=== PATIENT | male | born 1960 | race Caucasian/White ===

== ENCOUNTER 2019-08-27 18:12 | Inpatient (IN) | payer MEDICARE ==
[~2019-08-27] VITALS: Ht 182.9 cm; Wt 177.3 kg
[2019-08-27 19:17] LABS: BASOPHILS 0.3 % (0-2); EOSINOPHILS 1.6 % (0-7); HEMATOCRIT 43.3 % (42.0-54.0); IMMATURE GRANULOCYTES 0.3 % (0-5); LYMPHOCYTES 24.1 % (15-50); MCH 31.3 pg (26.0-34.0); MCHC 32.3 g/dL (31.0-37.0); MCV 96.7 fL (80.0-100.0); MEAN PLATELET VOLUME 8.8 fL (7.4-10.4); MONOCYTES 5.9 % (2-11); NEUTROPHILS 67.8 % (40-80); PLATELET COUNT 335 10x3/uL (130-400); RBC 4.48 10x6/uL (4.20-6.10); RDW 16.6 % (11.5-14.5); WBC 11.4 10x3/uL (4.8-10.8)
[2019-08-27 19:23] LABS: APTT 25.4 SECONDS (22.8-39.4); INR 1.04 (0.85-1.17); PROTIME 13.6 SECONDS (11.6-15.0)
[2019-08-27 19:26] LABS: ANION GAP 15.1 mmol/L (8-16); CALCIUM 8.5 mg/dL (8.5-10.1); CARBON DIOXIDE 25.5 mmol/L (21.0-32.0); CREATININE - SERUM 1.3 mg/dL (0.6-1.3); POTASSIUM - SERUM 3.6 mmol/L (3.5-5.1)
[2019-08-27 19:35] LABS: ALBUMIN 2.9 g/dL (3.4-5.0); BILIRUBIN - TOTAL 0.29 mg/dL (0.2-1.3); PROTEIN - SERUM 6.7 g/dL (6.4-8.2)
[2019-08-27] MEDS ORDERED: PROZAC20 MG PO (21:12)
--- NOTE | 2019-08-27 21:21 | NUR ---
[facility] ALERT,ORIENTED. SLING INTACT TO RIGHT ARM. IV TO LFA INTACT WITHOUT REDNESS OR EDEMA NOTED. TRANSFERED TO BED X 4 PERSON. ORIENTED TO ROOM. GAME ADVISOR MORPHINE SET UP WITH PATIENTINSTRUCTED ON USE.
[2019-08-28 01:25] VITALS: BP 148/83
[2019-08-28 04:29] VITALS: BP 133/66; Ht 182.9 cm; Wt 177.3 kg
[2019-08-28 04:59] VITALS: BP 106/55
[2019-08-28 06:22] LABS: BASOPHILS 0.2 % (0-2); HEMATOCRIT 42.1 % (42.0-54.0); HEMOGLOBIN 13.1 g/dL (13.5-17.5); IMMATURE GRANULOCYTES 0.3 % (0-5); LYMPHOCYTES 17.5 % (15-50); MCH 30.1 pg (26.0-34.0); MCHC 31.1 g/dL (31.0-37.0); MCV 96.8 fL (80.0-100.0); MONOCYTES 11.1 % (2-11); NEUTROPHILS 69.9 % (40-80); PLATELET COUNT 352 10x3/uL (130-400); RBC 4.35 10x6/uL (4.20-6.10); RDW 16.4 % (11.5-14.5); WBC 11.5 10x3/uL (4.8-10.8)
[2019-08-28 06:41] LABS: CALC OSMOLALITY 277 mosm/kg (275-300); CALCIUM 8.4 mg/dL (8.5-10.1); CARBON DIOXIDE 26.3 mmol/L (21.0-32.0); CHLORIDE - SERUM 103 mmol/L (98-107); GLUCOSE 117 mg/dL (74-106); POTASSIUM - SERUM 3.8 mmol/L (3.5-5.1); SODIUM 138 mmol/L (136-145); UREA NITROGEN 15 mg/dL (7-18); eGFR NON AFRICAN AMERICAN 81 mL/min (90-120)
--- NOTE | 2019-08-28 07:05 | NUR ---
ALERT AND ORIENTED. NO C/O PAIN, MORPHINE SILK WASHING MACHINE OPERATOR MANAGING PAIN AT THIS TIME. NO S/S OF ACUTE DISTRESS NOTED. SLING ON RIGHT ARM D/T HUMERAL FX. SURGERY SCHEDULED FOR 08/29/19. BEDREST. IV TO LEFT FOREARM, NS INFUSING @ 50ML/HR. SITE PATENT WITHOUT REDNESS OR SWELLING. DENIES ANY NEEDS AT THIS TIME. CALL LIGHT IN REACH. WILL CONTINUE TO MONITOR.
[2019-08-28 09:27] VITALS: BP 141/70
--- NOTE | 2019-08-28 13:42 | NUR ---
LYING IN BED,WITHOUT DISTRESS.CALL LIGHT IN REACH
[2019-08-28 17:47] VITALS: BP 116/66
--- NOTE | 2019-08-28 18:13 | NUR ---
ALERT AND ORIENTED, RESTING IN BED WITH EYES OPEN. NO C/O PAIN. NO S/S OF ACUTE DISTRESS NOTED. DENIES ANY NEEDS AT THIS TIME. CALL LIGHT IN REACH. WILL CONTINUE TO MONITOR.
[2019-08-28 18:40] LABS: BILIRUBIN NEGATIVE (NEGATIVE); GLUCOSE NEGATIVE (NEGATIVE); KETONE NEGATIVE (NEGATIVE); NITRITE NEGATIVE (NEGATIVE); SPECIFIC GRAVITY 1.025 (1.005-1.020); UROBILINOGEN NORMAL (NORMAL)
--- NOTE | 2019-08-28 19:30 | NUR ---
SUPINE IN BED, A&O X 4. PAIN LEVEL 7/10. DENIES N//V. SLING TO RIGHT ARM IN USE, DENIES NEEDS AT THIS TIME, WILL CONTINUE TO MONITOR.
[2019-08-28 20:00] VITALS: BP 126/78
[2019-08-29] VITALS (10 sets, daily range): BP systolic 101–158; BP diastolic 50–94
--- NOTE | 2019-08-29 02:19 | NUR ---
I have reviewed this patient and I concur with the Shift Assessment completed by the Licensed Practical Nurse today this shift.
[2019-08-29 05:53] LABS: BASOPHILS 0.2 % (0-2); EOSINOPHILS 1.5 % (0-7); HEMATOCRIT 39.6 % (42.0-54.0); HEMOGLOBIN 12.3 g/dL (13.5-17.5); IMMATURE GRANULOCYTES 0.2 % (0-5); LYMPHOCYTES 21.8 % (15-50); MCH 30.1 pg (26.0-34.0); MCHC 31.1 g/dL (31.0-37.0); MCV 96.8 fL (80.0-100.0); MEAN PLATELET VOLUME 9.1 fL (7.4-10.4); MONOCYTES 12.1 % (2-11); NEUTROPHILS 64.2 % (40-80); PLATELET COUNT 326 10x3/uL (130-400); RBC 4.09 10x6/uL (4.20-6.10); RDW 16.2 % (11.5-14.5); WBC 10.3 10x3/uL (4.8-10.8)
[2019-08-29 06:20] LABS: ALBUMIN 2.7 g/dL (3.4-5.0); ALKALINE PHOSPHATASE 100 U/L (30-120); ALT (SGPT) 27 U/L (10-68); BILIRUBIN - TOTAL 0.35 mg/dL (0.2-1.3); CALC OSMOLALITY 267 mosm/kg (275-300); CARBON DIOXIDE 26.2 mmol/L (21.0-32.0); CHLORIDE - SERUM 102 mmol/L (98-107); CREATININE - SERUM 0.9 mg/dL (0.6-1.3); GLUCOSE 103 mg/dL (74-106); POTASSIUM - SERUM 3.5 mmol/L (3.5-5.1); PROTEIN - SERUM 6.4 g/dL (6.4-8.2); SODIUM 134 mmol/L (136-145); UREA NITROGEN 13 mg/dL (7-18); eGFR NON AFRICAN AMERICAN > 90 mL/min (90-120)
--- NOTE | 2019-08-29 07:00 | NUR ---
RECEIVED PT FROM CORPORATE SECURITY MANAGER. UPON ENTERING PT IS RESTING IN BED WITH EYES CLOSED. BREATHING EVEN AND UNLABORED. NO S/S OF DISTRESS NOTED. PT IS ALERT AND ORIENTED AND UP WITH ASSIST. SCHEDULED TO HAS SURGERY TODAY FOR RIGHT HUMERUS FRACTURE. ROOM AIR. LEFT FOREARM NS @ 75. TELEMETRY. WILL CONTINUE TO MONITOR.
--- NOTE | 2019-08-29 08:40 | NUR ---
PT RESTING COMFORTABLY. NOT ABLE TO GIVE MEDICATION DUE TO NPO ORDER FOR SURGERY TODAY. DENIES ANY NEEDS AT THIS TIME. WILL CONTINUE TO MONITOR.
--- NOTE | 2019-08-29 10:31 | NUR ---
ADMINISTERED PRE OP MEDICATION. REMOVED TELEMETRY. PT IS OFF TO SURGERY.
[2019-08-29 14:15] LABS: BASOPHILS 0.1 % (0-2); EOSINOPHILS 0.4 % (0-7); HEMATOCRIT 37.6 % (42.0-54.0); HEMOGLOBIN 11.6 g/dL (13.5-17.5); IMMATURE GRANULOCYTES 0.4 % (0-5); LYMPHOCYTES 11.2 % (15-50); MCH 30.1 pg (26.0-34.0); MCHC 30.9 g/dL (31.0-37.0); MCV 97.4 fL (80.0-100.0); MEAN PLATELET VOLUME 8.8 fL (7.4-10.4); MONOCYTES 4.2 % (2-11); NEUTROPHILS 83.7 % (40-80); PLATELET COUNT 311 10x3/uL (130-400); RBC 3.86 10x6/uL (4.20-6.10); RDW 16.3 % (11.5-14.5)
--- NOTE | 2019-08-29 15:40 | NUR ---
WAITING FOR XR TO GET CHEST XR BEFORE TRANSFERING TO 2301
--- NOTE | 2019-08-29 15:44 | NUR ---
PT IS STILL OUT OF ROOM IN SURGERY.
--- NOTE | 2019-08-29 19:00 | NUR ---
SHIFT ASSESSMENT COMPLETED. PT CARE ASSUMED. MONITORS ON AND WORKING, VITALS STABLE, NEEDS MET.
[2019-08-30] VITALS (13 sets, daily range): BP systolic 92–137; BP diastolic 53–80
--- NOTE | 2019-08-30 01:00 | NUR ---
PT TURNED AND REPOSITIONED FOR COMFORT, MONITORS ON AND WORKING, PT AWAKE AND ALERT, NO SIGNS/SYMPTOMS OF PAIN OR DISCOMFORT NOTED, CALL LIGHT WITHIN REACH, WILL CONTINUE TO OBSERVE.
[2019-08-30 03:49] LABS: BASOPHILS 0.2 % (0-2); EOSINOPHILS 0.1 % (0-7); HEMATOCRIT 35.5 % (42.0-54.0); HEMOGLOBIN 11.1 g/dL (13.5-17.5); IMMATURE GRANULOCYTES 0.2 % (0-5); LYMPHOCYTES 12.8 % (15-50); MCH 30.2 pg (26.0-34.0); MCHC 31.3 g/dL (31.0-37.0); MCV 96.7 fL (80.0-100.0); MEAN PLATELET VOLUME 9.1 fL (7.4-10.4); MONOCYTES 10.8 % (2-11); NEUTROPHILS 75.9 % (40-80); PLATELET COUNT 296 10x3/uL (130-400); RBC 3.67 10x6/uL (4.20-6.10); RDW 16.1 % (11.5-14.5)
[2019-08-30 04:05] LABS: ALBUMIN 2.6 g/dL (3.4-5.0); ALKALINE PHOSPHATASE 90 U/L (30-120); ALT (SGPT) 33 U/L (10-68); BILIRUBIN - TOTAL 0.29 mg/dL (0.2-1.3); CALC OSMOLALITY 270 mosm/kg (275-300); CALCIUM 7.7 mg/dL (8.5-10.1); CHLORIDE - SERUM 102 mmol/L (98-107); CREATININE - SERUM 0.9 mg/dL (0.6-1.3); GLUCOSE 127 mg/dL (74-106); PROTEIN - SERUM 6.2 g/dL (6.4-8.2); SODIUM 135 mmol/L (136-145); UREA NITROGEN 10 mg/dL (7-18); eGFR NON AFRICAN AMERICAN > 90 mL/min (90-120)
[2019-08-30 04:14] LABS: POTASSIUM - SERUM 4.1 mmol/L (3.5-5.1)
--- NOTE | 2019-08-30 07:00 | NUR ---
REPORT RECEIVED. ASSESSMENT COMPLETE PER FLOW SHEET. VSS. PT RESTING COMFORTABLY WILL CONTINUE TOMONITOR
--- NOTE | 2019-08-30 07:44 | OP ---
PATIENT NAME: ROCIO PEREZ MEDICAL RECORD: [id number] :56 LOCATION:[facility] D.2301 ADMISSION DATE:08/27/19 SURGEON: WELLINGTON BROWNE DO DATE OF OPERATION: 08/29/2019 PROCEDURE PERFORMED: Right humerus open reduction internal fixation. PREOPERATIVE DIAGNOSIS: Displaced comminuted right humeral shaft fracture. POSTOPERATIVE DIAGNOSIS: Displaced comminuted right humeral shaft fracture. INDICATIONS: Mr. Perez is a 59-year-old schizophrenic male who fell, he said, couple of days ago, came to the ER, got x-rays and this showed the fracture. We then consented him for the procedure. I informed him of the risks and benefits including infection, bleeding, damage to the nerves and vessels including, specifically told him about the radial nerve, it would be a risk and a malunion, nonunion, need for further surgery, and that he be at risk for nonunion due to smoking. He was okay with that and signed a consent. SURGEON: Wellington Browne DO DESCRIPTION OF PROCEDURE: The patient was taken to the operative suite and laid in the supine position, given general anesthetic and intubated, he was given 2 grams of Ancef. He was then sat up in the beach chair position. The right upper extremity was then prepped and draped in sterile fashion. Time-out was performed. Everyone was in agreeance with the correct side, site, patient and procedure. We then began over the lateral humerus going down to the brachialis muscle and splitting in two, exposing the humerus and the fracture. Fracture was oblique and then 4 different pieces. We then lagged two of the pieces together and ended up getting cables, holding reduction on the fracture site and then put another lag screw in to hold it. I then put a 10-hole plate compression plate on, 4-5 compression plate and fixed it proximally and distally compressing it first and then locking screws. We then filled the rest of the screw holes and then AP and lateral done and everything was in good position. The fracture was well fixed. He did bleed quite a bit. He was irrigated out and typed and crossed and put in Des and vancomycin and tobramycin powder and closed the wound by Janusz Miles, certified surgical first coat operator with 2-0 Vicryl in an inverted interrupted fashion and 4-0 Monocryl ran on the skin and Prineo glue and then dressed with Telfa and Tegaderm and wrapped up with an Antonio wrap from the hand all the way up to the shoulder. He was awakened and taken to recovery in stable condition. Blood loss was approximately 500 mL. COMPLICATIONS: None. TRANSINT:[id number] Voice Confirmation ID: [id number] DOCUMENT ID: [id number] WELLINGTON BROWNE DO at 0744 CC: [id number] DICTATION DATE: 08/29/19 1354 MACHINIST WOOD: 08/29/19 1458 ADM IN [facility] [address] [id number]
--- NOTE | 2019-08-30 13:39 | NUR ---
PT TRANSFERRED FROM ICU, REQUESTED PAIN MEDICATION, STATED NEEDS 2 PEOPLE TO ASSIST IN GETTING PT SITUATED IN BED, NO OTHER NEEDS VOICED, ASSUME PT CARE
--- NOTE | 2019-08-31 01:11 | NUR ---
I have reviewed this patient and I concur with the Shift Assessment completed by the Licensed Practical Nurse today this shift.
--- NOTE | 2019-08-31 01:57 | NUR ---
PT RESTING IN BED. ALERT AND ORIENTED. NO SIGNS OF DISTRESS. BREATHING EVEN AND UNLABORED. PT STATES NO PROBLEMS AT THIS TIME. SLING ON RT ARM. DRESSING RT SHOULDER CLEAN DRY AND INTACT. BOWEL SOUNDS ACTIVE. IV SITE LT FOOT DRESSING CLEAN DRY AND INTACT. NO SIGNS OF INFECTION OR INFULTRATION. LUNG SOUNDS CLEAR. WILL CONTINUE PLAN OF CARE. CALL LIGHT IN REACH. BED RAILS UPX2.
[2019-08-31 04:00] VITALS: BP 144/78
[2019-08-31 04:43] LABS: BASOPHILS 0.2 % (0-2); EOSINOPHILS 1.1 % (0-7); HEMATOCRIT 36.2 % (42.0-54.0); HEMOGLOBIN 11.2 g/dL (13.5-17.5); IMMATURE GRANULOCYTES 0.3 % (0-5); LYMPHOCYTES 23.8 % (15-50); MCH 29.9 pg (26.0-34.0); MCHC 30.9 g/dL (31.0-37.0); MCV 96.5 fL (80.0-100.0); MEAN PLATELET VOLUME 9.2 fL (7.4-10.4); MONOCYTES 10.1 % (2-11); NEUTROPHILS 64.5 % (40-80); PLATELET COUNT 334 10x3/uL (130-400); RBC 3.75 10x6/uL (4.20-6.10); RDW 16.3 % (11.5-14.5); WBC 12.8 10x3/uL (4.8-10.8)
[2019-08-31 05:01] LABS: ALBUMIN 2.7 g/dL (3.4-5.0); ANION GAP 14.6 mmol/L (8-16); BILIRUBIN - TOTAL 0.42 mg/dL (0.2-1.3); CALCIUM 8.1 mg/dL (8.5-10.1); CARBON DIOXIDE 24.9 mmol/L (21.0-32.0); CREATININE - SERUM 1.1 mg/dL (0.6-1.3); POTASSIUM - SERUM 3.5 mmol/L (3.5-5.1); PROTEIN - SERUM 6.6 g/dL (6.4-8.2)
[2019-08-31] MEDS ORDERED: PERCOCET 5-3251 TAB PO (08:16)
[2019-08-31 09:13] VITALS: BP 120/57
--- NOTE | 2019-08-31 10:08 | NUR ---
PT LYINGIN BED SIDEWAYS, STATES HE CAN NOT GET COMFORTABLE AND STATED UNSURE IF DOCTOR IS SENDING HIM HOME. PT IV CONTINUES TO ALARM AIR IN LINE, PT IS EATING AND DRINKING WELL, SL IV UNTIL TIME FOR ABX. ADMINISTERED PRN PAIN MEDICATION WITH PT MORNING MEDS, NO OTHER NEEDS VOICED AT THIS TIME, CONTINUE WITH PLAN OF CARE
[2019-08-31] MEDS ORDERED: Nicoderm [PBKC] TRANSDERM (10:55)
--- NOTE | 2019-08-31 11:42 | NUR ---
PT WAS JUST GIVEN PAIN SHOT AN HOUR AGO FOR PAIN MANAGEMENT, PT HAS REUQESTED MORE PAIN MEDICATION BEFORE DC. PT CAN HAVE PAIN PILL AT 1PM IF PT IS STILL HERE AT THIS TIME WILL ADMINISTER. NO OTHER NEEDS VOICED, CONTINUE WITH PLAN OF CARE
[2019-08-31 12:36] VITALS: BP 118/76
--- NOTE | 2019-08-31 12:41 | MORECARE ---
CASE MANAGEMENT DISCHARGE SUMMARY PATIENT: ROCIO PEREZ UNIT: [id number] ADM DATE: 08/27/19 AGE: 59 : 56 SEX: M ROOM/BED: D.2214 AUTHOR: CHRIS,DOC PHYSICIAN: REFERRING PHYSICIAN: CASSIE CHOI MD DATE OF SERVICE: 08/31/19 Discharge Plan Patient Name: ROCIO PEREZ Facility: [facility]:[place] : 1960 Planned Disposition: Home Anticipated Discharge Date: Discharge Date: Expected LOS: Initial Reviewer: [email or web address] Initial Review Date: 08/27/2019 Generated: 08/31/19 1:40 pm Comments DCP- Discharge Planning Updated by [email or web address]: Aminta Giron on 08/31/19 11:[address] Patient Name: ROCIO PEREZ Admission Status: ER Accout number: [id number] Admission Date: 08-27-2019 : 1960 Admission Diagnosis:UNSP FRACTURE OF SHAFT OF HUMERUS, RIGHT ARM, INIT Attending: CASSIE CHOI Current LOS: 4 Anticipated DC Date: Planned Disposition: Home Primary Insurance: [employer] MEDICARE PPO or HMO Discharge Planning Comments: CM met with patient to complete initial dc planning assessment. CM educated patient on the CM role and verbal consent given by patient to complete assessment. Patient lives at home and his son lives with him. At discharge patient plans to return home and feels this is a safe discharge. His father will be his utility worker driver home today. CM discussed availability of home health, rehab services, and medical equipment. Patient denied known discharge needs at this time. CM will continue to follow and will assist as needed with dc plans/needs. Jewelry Jobber: Aminta Giron DCPIA - Discharge Planning Initial Assessment Updated by [email or web address]: Aminta Giron on 08/31/19 12:40 pm * Is the patient Alert and Oriented? Yes * PCP NONE * Pharmacy [facility] * Preadmission Environment Home with Family * ADLs Independent * Equipment None * List name and contact numbers for known caregivers / representatives who currently or will assist patient after discharge: ROCIO PEREZ ( FATHER) [phone] * Verbal permission to speak to the caregivers and representatives has been obtained from the patient. N/A * Community resources currently utilized None * Additional services required to return to the preadmission environment? No * Can the patient safely return to the preadmission environment? Yes * Has this patient been hospitalized within the prior 30 days at any hospital? No Coverage Notice Reviewer: [email or web address] Rosas Giron Notice Issued Date-Time: 08/31/2019 12:35 Notice Type: IM Discharge Notice Notice Delivered To: Patient Relationship to Patient: Patient Accounting Representative Name: Delivery Method: HAND - Hand Delivered Zulay Days: Prior Verbal Notification: Recipient Understood Notice: Yes Recipient Signature: Yes Med Rec Note Co-signed by Attending: Coverage Notice Comment: Patient Name: ROCIO PEREZ Page [phone] at 1241 All edits/amendments must be made on the electronic document DICTATION DATE: 08/31/19 [address] WINDOW DRAPER: NINA 08/31/19 1240 RPT#: [id number] DC DATE: STATUS: ADM IN [facility] [address] [place] [address] END OF REPORT
--- NOTE | 2019-08-31 13:58 | NUR ---
I have reviewed this patient and I concur with the Shift Assessment completed by the Licensed Practical Nurse today this shift.
--- NOTE | 2019-08-31 14:30 | NUR ---
WENT OVER DC PAPERWORK WITH PT, ALL QUESTIONS ANSWERED, ASSISTED PT IN GETTING DRESSED. IV DC WITH CATHETER INTACT, PT TAKEN DOWN TO CAR VIA WC
--- NOTE | 2019-08-31 16:26 | MORECARE ---
CASE MANAGEMENT DISCHARGE SUMMARY PATIENT: ROCIO PEREZ UNIT: [id number] ADM DATE: 08/27/19 AGE: 59 : 56 SEX: M ROOM/BED: D.2214 AUTHOR: CHRIS,DOC PHYSICIAN: REFERRING PHYSICIAN: CASSIE CHOI MD DATE OF SERVICE: 08/31/19 Discharge Plan Patient Name: ROCIO PEREZ Facility: [facility]:[place] : 1960 Planned Disposition: Home Anticipated Discharge Date: Discharge Date: 08/31/2019 Expected LOS: 0 Initial Reviewer: [email or web address] Initial Review Date: 08/27/2019 Generated: 08/31/19 5:25 pm Comments DCP- Discharge Planning Updated by [email or web address]: Aminta Giron on 08/31/19 11:[address] Patient Name: ROCIO PEREZ Admission Status: ER Accout number: [id number] Admission Date: 08-27-2019 : 1960 Admission Diagnosis:UNSP FRACTURE OF SHAFT OF HUMERUS, RIGHT ARM, INIT Attending: CASSIE CHOI Current LOS: 4 Anticipated DC Date: Planned Disposition: Home Primary Insurance: [employer] MEDICARE PPO or HMO Discharge Planning Comments: CM met with patient to complete initial dc planning assessment. CM educated patient on the CM role and verbal consent given by patient to complete assessment. Patient lives at home and his son lives with him. At discharge patient plans to return home and feels this is a safe discharge. His father will be his driver license reviewing officer home today. CM discussed availability of home health, rehab services, and medical equipment. Patient denied known discharge needs at this time. IMM served and explained. CM will continue to follow and will assist as needed with dc plans/needs. Heat And Frost Insulator Helper: Aminta Giron DCPIA - Discharge Planning Initial Assessment Updated by [email or web address]: Aminta Giron on 08/31/19 12:40 pm * Is the patient Alert and Oriented? Yes * PCP NONE * Pharmacy [facility] * Preadmission Environment Home with Family * ADLs Independent * Equipment None * List name and contact numbers for known caregivers / representatives who currently or will assist patient after discharge: ROCIO PEREZ ( FATHER) [phone] * Verbal permission to speak to the caregivers and representatives has been obtained from the patient. N/A * Community resources currently utilized None * Additional services required to return to the preadmission environment? No * Can the patient safely return to the preadmission environment? Yes * Has this patient been hospitalized within the prior 30 days at any hospital? No Coverage Notice Reviewer: [email or web address] Rosas Giron Notice Issued Date-Time: 08/31/2019 12:35 Notice Type: IM Discharge Notice Notice Delivered To: Patient Relationship to Patient: Flight Service Agent Name: Delivery Method: HAND - Hand Delivered Zulay Days: Prior Verbal Notification: Recipient Understood Notice: Yes Recipient Signature: Yes Med Rec Note Co-signed by Attending: Coverage Notice Comment: Last DP export: 08/31/19 11:41 a Patient Name: ROCIO PEREZ Page [phone] at 1626 All edits/amendments must be made on the electronic document DICTATION DATE: 08/31/191624 CONTOUR GRINDER: NINA 08/31/195 RPT#: [id number] DC DATE:08/31/19 STATUS: DIS IN [facility] [address] [place] [address] END OF REPORT
== END 2019-08-31 14:36 | disposition home or self-care (01) | DRG 493 ==
LOC: D.ER 18:12 → D.MS 19:05 → D.SDCHOLD 08-29 14:08 → D.MS 08-29 14:19 → D.ICU 08-29 15:59 → D.MS 08-30 13:20 → D.SDCHOLD 08-31 12:16 → D.MS 08-31 12:25
PROVIDERS: Emergency Medicine; Family Medicine; Orthopaedic Surgery; ADMIT Internal Medicine Nephrology; ATTEND Internal Medicine Nephrology
PROC: 0PSF04Z Reposition Right Humeral Shaft with Internal Fixation Device, Open Approach (ICD-10-PCS; principal; 2019-08-29 09:30)
DX: S42.331A Displaced oblique fracture of shaft of humerus, right arm, initial encounter for closed fracture (principal); F17.203 Nicotine dependence unspecified, with withdrawal; F20.0 Paranoid schizophrenia; Z68.43 Body mass index [BMI] 50.0-59.9, adult; W01.0XXA Fall on same level from slipping, tripping and stumbling without subsequent striking against object, initial encounter; E66.9 Obesity, unspecified

== ENCOUNTER → 2020-09-05 15:14 | Outpatient (CLI) | payer MEDICARE ==
[2019-08-28 04:29] VITALS: BMI 53.0
[~2020-09-05 15:14] MED LIST: Nicoderm [PBKC] TRANSDERM; PERCOCET 5-3251 TAB PO; PROZAC20 MG PO
== END | disposition home or self-care (01) ==
LOC: D.CT 15:14
PROVIDERS: ATTEND Nurse Practitioner Family
DX: S42.301A Unspecified fracture of shaft of humerus, right arm, initial encounter for closed fracture (principal)